=== PATIENT | male | born 1955 | race Caucasian/White ===

== ENCOUNTER 2017-08-14 12:47 | Emergency (ER) | END 2017-08-14 14:45 | disposition home or self-care (01) ==

== ENCOUNTER 2018-10-02 11:14 | Emergency (ER) | payer MEDICAID ==
[~2018-10-02] VITALS: Ht 172.7 cm; Wt 81.8 kg
[~2018-10-02 11:14] MED LIST: HYDR-4011 PO; NAPR-985 PO
[2018-10-02 11:17] VITALS: BP 165/78; PULSE 78; RESP 18; Ht 172.7 cm; Wt 81.8 kg
--- NOTE | 2018-10-02 12:25 | ERD ---
ER Documentation Chief Complaint Chief Complaint lower back pain , b/l shoulder pain HPI 62-year-old male, with multiple medical problems including hypertension, diabetes and severe gouty arthritis presents the emergency department, complaining of worsening of lower back pain, associated with bilateral shoulder pain. The pain is dull, 6/10, constant. The patient denies fever, no chills, no shortness of breath, no chest pain, no abdominal pain. The patient is currently taking naproxen with minimal improvement of the symptoms. ROS All systems reviewed and are negative except as per history of present illness. Medications Home Meds Active Scripts Naproxen* (Naprosyn*) 500 Mg Tablet, 500 MG PO BID PRN for PAIN AND/OR INFLAMMATION, #30 TAB Prov:DREA MEDINA PA-C 08/14/17 Hydrocodone/Acetaminophen ([place] 5-325 Tablet) 1 Each Tablet, 1 TAB PO Q6H PRN for PAIN, #7 TAB Prov:DREA MEDINA PA-C 08/14/17 Allergies Allergies: Coded Allergies: No Known Allergy (Unverified , 08/14/17) PMhx/Soc The patient reports history of hypertension currently on lisinopril. Diabetes mellitus on metformin. Gout on allopurinol treatment. History of Surgery: No Anesthesia Reaction: No Hx Neurological Disorder: No Hx Respiratory Disorders: No Hx Cardiac Disorders: No Hx Psychiatric Problems: No Hx Miscellaneous Medical Probl: No Hx Alcohol Use: No Hx Substance Use: No Hx Tobacco Use: No Smoking Status: Never smoker FmHx Family History: diabetes Physical Exam Vitals Vital Signs Date Temp Pulse Resp B/P (MAP) Pulse Ox O2 O2 Flow FiO2 Time Delivery Rate 10/02/18 98.1 78 18 165/78 99 11:17 (107) Physical Exam Const: No acute distress Head: Atraumatic Eyes: Normal Conjunctiva ENT: Normal External Ears, Nose and Mouth. Neck: Full range of motion. No meningismus. Resp: Clear to auscultation bilaterally Cardio: Regular rate and rhythm, no murmurs Abd: Soft, non tender, non distended. 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 Differential diagnosis considered include osteoarthritis, gout, rheumatoid arthritis, reactive arthritis, lupus, thyroid disease. Low suspicion for septic arthritis. During the ED course the patient remained stable, no new complaints. The patient received treatment with Toradol and prednisone presenting overall improvement of the symptoms. Results and clinical impression discussed with the patient who agrees with management. The patient is stable to be treated outpatient and will be discharged home with a Rx for [place] and prednisone, some side effects of prescribed medications (headache, rash, nausea, vomiting, diarrhea, drowsiness, habituation, bleeding, hypertension, interactions with other medications) were reviewed. The patient was informed that the evaluation in the emergency department has been done to rule out an acute emergency, therefore, chronic conditions like malignancy or other diseases have not been evaluated; therefore, the patient was instructed to follow up with the primary care provider in the next 48h. If symptoms persist, worsen or new symptoms develop, then patient should return to the ED immediately. Instructions explained and given directly by me to the patient with acknowledgment and demonstrated understanding. Disclaimer: Inadvertent spelling and grammatical errors are likely due to EHR/dictation software use and do not reflect on the overall quality of patient care. Also, please note that the electronic time recorded on this note does not necessarily reflect the actual time of the patient encounter. Departure Diagnosis: Primary Impression: Gouty arthritis Condition: Stable Additional Instructions: Muchas rafiq por [facility] para reeder servicio. Esperamos que en reeder visita a la esmer de emergencia reeder problema medico haya sido solucionado y que se sienta mucho mejor. Para estar seguros que reeder mejoria sigue en proceso, le pedimos el favor de hacer pamela chidi de seguimiento medico con reeder doctor primario en los proximos 2-4 chanel. Lleve con usted estos documentos y las medicinas recetadas. Si manas sintomas empeoran, NO SE ESPERE, por favor regrese a esmer de emergencia INMEDIATAMENTE. En sanchez que usted no tenga un mdico de atencin primaria: Llame al mdico o clnica comunitaria de referencia que aparece abajo olga las horas de consultorio para hacer pamela chidi para que le vean. CLINICAS: [facility] [phone] [facility] [phone] [facility] [phone] [place] [phone] [id number] [place] [phone] [facility]. [phone] LISA CESAR MD October 02, 2018 12:25
[2018-10-02] MEDS ORDERED: KETOROLAC 15 MG INJ IM STA (12:37)
[2018-10-02] MEDS ORDERED: HYDR-4011 PO (12:43)
[2018-10-02] MEDS ORDERED: PRED20TA PO (12:43)
[2018-10-02] MEDS ORDERED: predniSONE 20 MG TAB PO ONE (13:00)
== END 2018-10-02 13:11 | disposition home or self-care (01) ==
LOC: FTE 11:14
DX: M10.00 Idiopathic gout, unspecified site (principal); I10 Essential (primary) hypertension; E11.9 Type 2 diabetes mellitus without complications; Z79.84 Long term (current) use of oral hypoglycemic drugs
CPT/HCPCS: 96372; J1885; J7512; Z7502